=== PATIENT | male | born 1990 | race Caucasian/White ===

== ENCOUNTER 2021-09-14 17:00 | Emergency (ER) | payer SELFPAY | END 2021-09-14 20:59 | disposition home or self-care (01) | LOC: JD.ED 17:00 | DX: F19.90 Other psychoactive substance use, unspecified, uncomplicated (principal); F15.90 Other stimulant use, unspecified, uncomplicated | CPT/HCPCS: 36415; 80053; 80307; 83735; 85027; 93005; 99284-25 ==